=== PATIENT | female | born 1975 | race Caucasian/White ===

== ENCOUNTER 2021-01-31 06:00 | Day surgery (SDC) | payer BC ==
[2021-01-27 09:37] LABS: BASOPHILS % (AUTO) 0.5 % (0.0-2.0); EOSINOPHILS # (AUTO) 0.1 K/uL (0.0-0.4); HEMOGLOBIN 12.1 g/dL (12.0-16.0); LYMPHOCYTES # (AUTO) 1.9 K/uL (1.0-5.5); LYMPHOCYTES % (AUTO) 29.2 % (20.5-51.5); MEAN CORPUSCULAR HEMOGLOBIN 31 pg (27-31); MEAN CORPUSCULAR HGB CONC 35 % (32-36); MEAN CORPUSCULAR VOLUME 91 fL (79.0-98.0); MONOCYTES # (AUTO) 0.4 K/uL (0.0-1.0); MONOCYTES % (AUTO) 5.5 % (1.7-9.3); NEUTROPHILS # (AUTO) 4.1 K/uL (1.8-7.7); NEUTROPHILS % (AUTO) 62.8 % (40.0-70.0); PLATELET COUNT (AUTO) 182 K/uL (130-430); RED BLOOD CELL COUNT(AUTO) 3.86 MIL/uL (4.2-6.2); RED CELL DISTRIBUTION WIDTH 12.5 % (9.0-15.0); WHITE BLOOD COUNT (AUTO) 6.5 K/uL (4.8-10.8)
[2021-01-27 09:55] LABS: INR 0.9 (0.8-1.2); PROTHROMBIN TIME 9.3 SECS (9.5-12.5)
[2021-01-27 10:00] LABS: ALBUMIN 3.4 g/dL (3.4-4.8); CALCIUM 8.2 mg/dL (8.4-11.0); CREATININE 0.55 mg/dL (0.55-1.30); POTASSIUM 4.1 mmol/L (3.5-5.1); TOTAL BILIRUBIN 0.4 mg/dL (0.0-1.0)
[2021-01-27 10:09] LABS: BILIRUBIN,URINE NEGATIVE (NEGATIVE); BLOOD, URINE 2+ (NEGATIVE); CLARITY/URINE CLEAR (CLEAR); COLOR,URINE YELLOW (YELLOW); GLUCOSE,URINE NEGATIVE (NEGATIVE); KETONES,URINE NEGATIVE (NEGATIVE); LEUKOCYTE ESTERASE ,URINE NEGATIVE (NEGATIVE); NITRITE, URINE NEGATIVE (NEGATIVE); PROTEIN URINE NEGATIVE (NEGATIVE); UROBILINOGEN,URINE 0.2 (0.2-1.0)
[2021-01-27 10:45] LABS: BACTERIA,URINE FEW /HPF (None Seen); MUCUS,URINE 1+ /LPF (None Seen); WBC,URINE 0-3 /HPF (0-3)
[~2021-01-31] VITALS: Ht 165.1 cm; Wt 96.6 kg
[2021-01-31] MEDS ORDERED: CEFAZOLIN SOD 2 GM in D5W 50 ML IV ONE (06:45)
[2021-01-31 07:23] LABS: HCG,QUAL RESULT NEGATIVE (NEGATIVE)
[2021-01-31] MEDS ORDERED: PROPOFOL 200MG/ 20ML VIAL (DIPRIVAN) IV ONE (07:33)
[2021-01-31] MEDS ORDERED: LR 1,000 ML IV.SOLN IV ONE (07:33)
[2021-01-31] MEDS ORDERED: ONDANSETRON HCL 4 MG/2 ML VIAL IVP ONE (07:33)
[2021-01-31] MEDS ORDERED: DESFLURANE 15 MIN GAS INH ONE (07:33)
[2021-01-31] MEDS ORDERED: fentaNYL CITRATE/PF 100 MCG/2 ML AMP IVP ONE (07:33)
[2021-01-31] MEDS ORDERED: WATER FOR IRRIGATION,STERILE 1,000 ML IRRIG.SOLN IR ONE (07:33)
[2021-01-31] MEDS ORDERED: DEXAMETHASONE SOD PHOSPHATE 4 MG/ML VIAL IVP ONE (07:33)
[2021-01-31] MEDS ORDERED: NS IRRIG SOLN 1000 ML IR ONE (07:33)
[2021-01-31] MEDS ORDERED: ACETAMINOPHEN I.V. 1000 MG 100 ML IV ONE (08:29)
[2021-01-31] MEDS ORDERED: ONDANSETRON HCL 4 MG/2 ML VIAL IVP PRN ×2 (08:30→08:45)
[2021-01-31] MEDS ORDERED: HYDROcodone/ACETAMIN 5-325 MG TAB (NORCO/ VICODIN) PO PRN ×2 (08:30)
[2021-01-31] MEDS ORDERED: METOCLOPRAMIDE HCL 10 MG/2 ML VIAL IVP PRN (08:45)
[2021-01-31] MEDS ORDERED: HYDROmorphone 1 MG/ML INJ. CARTRIDGE IVP PRN ×2 (08:45)
[2021-01-31] MEDS ORDERED: HYDROmorphone 1 MG/ML INJ. CARTRIDGE ONE (08:48)
[2021-01-31] MEDS ORDERED: ONDANSETRON HCL 4 MG/2 ML VIAL ONE (08:51)
[2021-01-31 10:03] VITALS: BP_SYST 124
== END 2021-01-31 10:30 | disposition home or self-care (01) ==
LOC: SDS 06:00 → SMU 06:02 → SDS 10:30
PROVIDERS: ATTEND Obstetrics & Gynecology Gynecology
DX: N92.0 Excessive and frequent menstruation with regular cycle (principal); Z79.899 Other long term (current) drug therapy; Z79.01 Long term (current) use of anticoagulants; Z20.822 Contact with and (suspected) exposure to COVID-19
CPT/HCPCS: 36415 ×2; 58353; 71046; 80053; 81000; 84703 ×2; 85025; 85610; 85730; 86886; 86900; 86901; 87086; 93005; J0131; J0690; J1100; J1170; J2405; J2704; J3010; J7060; J7120; U0003

== ENCOUNTER 2021-11-07 16:22 | Emergency (ER) | payer BC ==
[~2021-11-07] VITALS: Ht 162.6 cm; Wt 95.3 kg
[2021-11-07 16:29] VITALS: BP_SYST 144
--- NOTE | 2021-11-07 16:43 | NUR ---
PT STATES SHE TESTED POSITIVE FOR COVID YESTERADY AN STARTED FEELING DUDLEY FLAK PAIN, DENIES HISTORY OF KIDNEY STONES. ALSO HAS TOSCANO AND VOMITTING. PT IN NAD. RESP EVENAND UNLABORED, ON RA @98% PT IN TENT AT THIS TIME, WAITING FOR ER MD EXAM
[2021-11-07] MEDS ORDERED: NACL 0.9% 1,000 ML IV ONE (17:30)
[2021-11-07 18:29] LABS: BASOPHILS % (AUTO) 0.4 % (0.0-2.0); EOSINOPHILS % (AUTO) 0.2 % (0.0-4.0); HEMOGLOBIN 12.7 g/dL (12.0-16.0); LYMPHOCYTES # (AUTO) 0.5 K/uL (1.0-5.5); LYMPHOCYTES % (AUTO) 5.6 % (20.5-51.5); MEAN CORPUSCULAR HEMOGLOBIN 30 pg (27-31); MEAN CORPUSCULAR HGB CONC 34 % (32-36); MEAN CORPUSCULAR VOLUME 88 fL (79.0-98.0); MONOCYTES # (AUTO) 0.4 K/uL (0.0-1.0); MONOCYTES % (AUTO) 4.8 % (1.7-9.3); NEUTROPHILS # (AUTO) 7.6 K/uL (1.8-7.7); PLATELET COUNT (AUTO) 179 K/uL (130-430); RED BLOOD CELL COUNT(AUTO) 4.19 MIL/uL (4.2-6.2); RED CELL DISTRIBUTION WIDTH 12.1 % (9.0-15.0); WHITE BLOOD COUNT (AUTO) 8.6 K/uL (4.8-10.8)
[2021-11-07] MEDS ORDERED: LIDOCAINE PATCH 5% 1 EA TP ONE ×2 (18:30→18:35)
[2021-11-07] MEDS ORDERED: ACETAMINOPHEN 500 MG TABLET PO ONE (18:30)
[2021-11-07] MEDS ORDERED: ONDANSETRON 4 MG ODT TAB PO ONE (18:30)
[2021-11-07] MEDS ORDERED: ACETAMINOPHEN 500 MG TABLET ONE (18:34)
[2021-11-07] MEDS ORDERED: ONDANSETRON 4 MG ODT TAB ONE (18:34)
--- NOTE | 2021-11-07 18:51 | NUR ---
Pt in tent, no room in er. medicated as ordered. Unable to start IV in tent, CN aware. Dr Pulido ok with pt waiting.
[2021-11-07 19:14] LABS: CALCIUM 8.6 mg/dL (8.4-11.0); CREATININE 0.72 mg/dL (0.55-1.30); POTASSIUM 3.3 mmol/L (3.5-5.1)
[2021-11-07 19:20] LABS: ALBUMIN 3.6 g/dL (3.4-4.8); TOTAL BILIRUBIN 0.3 mg/dL (0.0-1.0)
--- NOTE | 2021-11-07 19:54 | NUR ---
Pt resting comfortably in bed inside tent. No signs of acute distress. Breathing adequately on RA.
--- NOTE | 2021-11-07 20:25 | NUR ---
Pt was not able to be located inside tent or surrounding area.
--- NOTE | 2021-11-07 20:42 | NUR ---
went to look for patient in ER lobby but no answer patient eloped
[2021-11-07 22:02] LABS: BILIRUBIN,URINE NEGATIVE (NEGATIVE); BLOOD, URINE 3+ (NEGATIVE); COLOR,URINE YELLOW (YELLOW); GLUCOSE,URINE NEGATIVE (NEGATIVE); KETONES,URINE TRACE (NEGATIVE); LEUKOCYTE ESTERASE ,URINE NEGATIVE (NEGATIVE); NITRITE, URINE NEGATIVE (NEGATIVE); PH,URINE 5.5 (5.0-8.0); PROTEIN URINE NEGATIVE (NEGATIVE); UROBILINOGEN,URINE 0.2 (0.2-1.0)
[2021-11-07 22:19] LABS: CLARITY/URINE SLIGHTLY HAZY (CLEAR)
[2021-11-07 23:56] LABS: BACTERIA,URINE FEW /HPF (None Seen); MUCUS,URINE None Seen /LPF (None Seen); WBC,URINE 0-3 /HPF (0-3)
== END 2021-11-07 20:42 | disposition left against medical advice (07) ==
LOC: SED 16:22
DX: R10.9 Unspecified abdominal pain (principal); R05.9 Cough, unspecified; R50.9 Fever, unspecified; R11.0 Nausea; Z79.899 Other long term (current) drug therapy
CPT/HCPCS: 99284; 96360; 80053; 81000; 83690; 85025; 36415; Q0162; J7030; 99281